=== PATIENT | female | born 1960 | race African-American/Black ===

== ENCOUNTER 2019-03-12 13:23 | Emergency (ER) | payer OTHER ==
[~2019-03-12] VITALS: Ht 162.6 cm; Wt 68.0 kg
[2019-03-12 13:40] VITALS: BP 158/76
[2019-03-12] MEDS ORDERED: LOSARTAN POTASS50 MG ORAL (13:40)
[2019-03-12] MEDS ORDERED: GABAPENTIN600 MG ORAL ×3 (13:40)
[2019-03-12] MEDS ORDERED: KLONOPIN0.5 MG ORAL (13:40)
--- NOTE | 2019-03-12 13:40 | NUR ---
ED Nurse Note: pt walked in due to pain and abrasion on the lower chin, pt stated she slipped on a rug in [employer] and fell on her chin and left knee and left elbow. pt noted with some bruises. denies dizziness prioopr to fall. pt stated she ahs previous hx of stroke 10 years ago. pt has right body deficiency.. pt able to answer all questions. will continue to monitor.
[2019-03-12] MEDS ORDERED: Acetaminophen 500mg (ES) tab PO ONE (14:00)
--- NOTE | 2019-03-12 14:00 | NUR ---
ED Nurse Note: pt was seen by ted.
--- NOTE | 2019-03-12 14:20 | NUR ---
ED Nurse Note: pt went to ct with tech
--- NOTE | 2019-03-12 14:32 | NUR ---
ED Nurse Note: pt went back from ct with tech
--- NOTE | 2019-03-12 14:33 | NUR ---
ED Nurse Note: pt medical and pt able to tolerate well
--- NOTE | 2019-03-12 14:53 | Diagnostic Imaging Report ---
Indications: Intense headache and nausea after trip and fall today, 7 out of 10, nonradiating Technique: Spiral acquisitions obtained through the brain. Angled axial and coronal 5 x 5 mm slices were reconstructed. Total dose length product 2044.94 mGycm. CTDI vol(s) 70.38,28.19,11.18 mGy. Dose reduction achieved using automated exposure control Comparison: None. Findings: No acute intracranial hemorrhage or edema, mass effect, nor midline shift. Normal jack-white differentiation. Old lacunar infarcts are seen in the basal ganglia bilaterally. There is periventricular deep white matter low-attenuation, consistent with chronic microvascular ischemic change. Normal size ventricles and extra-axial CSF spaces. The calvarium is intact. The sinuses are clear. The mastoids are clear. Impression: Chronic and age-related changes, including multiple old lacunar infarcts Negative for acute intracranial bleed or mass effect This agrees with the preliminary interpretation provided overnight by [facility]. The CT scanner at [facility] is accredited by the [employer] and the scans are performed using protocols designed to limit radiation exposure to as low as reasonably achievable to attain images of sufficient resolution adequate for diagnostic evaluation.
--- NOTE | 2019-03-12 14:55 | Diagnostic Imaging Report ---
Indications: Facial pain, status post trip and fall with facial trauma Technique: Spiral images obtained through the facial bones. No IV contrast utilized. Multiplanar reconstructions were generated.Total dose length product 2044 mGycm. CTDIvol(s) 70, 28, 11 mGy. Dose reduction achieved using automated exposure control Comparison: none Findings: No acute fractures. No worrisome sinus opacification. The optic globes are intact. The retroseptal orbits are intact. There is evidence of multiple prior dental extractions. Impression: Essentially unremarkable exam This agrees with the preliminary interpretation provided overnight by [facility]. The CT scanner at [facility] is accredited by the [employer] and the scans are performed using protocols designed to limit radiation exposure to as low as reasonably achievable to attain images of sufficient resolution adequate for diagnostic evaluation.
--- NOTE | 2019-03-12 15:11 | Diagnostic Imaging Report ---
Indication: Neck pain status post trip and fall trauma Technique: Spiral acquisitions obtained through the cervical spine. No IV contrast utilized. Multiplanar reconstructions were generated. Total dose length product 2044.94 mGycm. CTDIvol(s) 70.38,28.19,11.18 mGy. Dose reduction achieved using automated exposure control. Comparison: none Findings: There is slight reversal of the normal cervical lordosis, otherwise normal bony alignment. No prevertebral soft tissue swelling. No acute fractures. No dislocations. At C3-4, there is facet arthrosis on the left At C4-5, there is mild degenerative disc narrowing. There is mild broad-based central posterior disc protrusion which results in borderline narrowing of the spinal canal. There is mild narrowing of the left neural foramen. There is facet arthrosis on the left. At C5-6, there is moderate degenerative disc narrowing. There is mild left and moderate right neural foraminal stenosis. There is broad-based posterior disc protrusion which results in borderline narrowing of the spinal canal. At C6-7, there is moderate degenerative disc narrowing. There is mild bilateral neural foraminal stenosis. No significant disc bulge or protrusion or spinal stenosis. At C7-T1, no significant disc bulge or protrusion, spinal stenosis, or neural foraminal narrowing. The upper aerodigestive tract is unremarkable. The included extra spinal soft tissues are unremarkable. Impression: No acute bony trauma Degenerative changes, as detailed on a level by level basis above. This agrees with the preliminary interpretation provided overnight by [facility]. The CT scanner at [facility] is accredited by the [employer] and the scans are performed using protocols designed to limit radiation exposure to as low as reasonably achievable to attain images of sufficient resolution adequate for diagnostic evaluation.
[2019-03-12] MEDS ORDERED: ROBAXIN-750750 MG PO (15:48)
[2019-03-12] MEDS ORDERED: LIDODERM700 M1 TOPIC (15:48)
[2019-03-12 15:55] VITALS: BP 158/76
--- NOTE | 2019-03-12 15:55 | NUR ---
ER DISCHARGE NOTE: Patient is cleared to be discharged per ERMD, pt is aox4, on room air, with stable vital signs. pt was given dc and prescription instructions, pt was able to verbalize understanding, pt id band removed without complications. pt is able to ambulate with steady gait. pt took all belongings.
--- NOTE | 2019-03-12 18:45 | Emergency Room Report ---
History of Present Illness General Chief Complaint: Multiple Trauma/Fall Source: Patient Present Illness HPI 58-year-old female resents ED for evaluation. Patient had a mechanical trip and fall today at pharmacy. Denies LOC. States she is having intense headache , nausea, neck pain and facial pain. Pain is throbbing, 7 out of 10, nonradiating. Notes nausea, denies vomiting. Notes dizziness. Has history of CVA in the past. No other aggravating relieving factors. Denies any other associated symptoms Allergies: Coded Allergies: No Known Allergies (Unverified , 03/12/19) Patient History Past Medical History: none Past Surgical History: none Pertinent Family History: none Social History: Denies: smoking, alcohol use, drug use Last Menstrual Period: no period Now: No Immunizations: UTD Reviewed Nursing Documentation: PMH: Agreed; PSxH: Agreed Nursing Documentation-PMH Past Medical History: No Stated History Hx Cardiac Problems: No - stroke in 2008 Review of Systems All Other Systems: negative except mentioned in HPI Physical Exam Vital Signs Date Time Temp Pulse Resp B/P (MAP) Pulse Ox O2 Delivery O2 Flow Rate FiO2 03/12/19 13:29 98.4 73 17 158/76 (103) 94 Room Air Sp02 EP Interpretation: reviewed, normal General Appearance: no apparent distress, alert, GCS 15, non-toxic Head: normocephalic, atraumatic Eyes: bilateral eye normal inspection, bilateral eye PERRL ENT: hearing grossly normal, normal pharynx, no angioedema, normal voice Neck: full range of motion, supple, supple/symm/no masses, tender lateral, tender midline Respiratory: chest non-tender, lungs clear, normal breath sounds, speaking full sentences Cardiovascular #1: regular rate, rhythm, no edema Cardiovascular #2: 2+ carotid (R), 2+ carotid (L), 2+ radial (R), 2+ radial (L) , 2+ dorsalis pedis (R), 2+ dorsalis pedis (L) Gastrointestinal: normal bowel sounds, non tender, soft, non-distended, no guarding, no rebound Rectal: deferred Genitourinary: normal inspection, no CVA tenderness Musculoskeletal: back normal, gait/station normal, normal range of motion, non- tender Neurologic: alert, oriented x3, responsive, motor strength/tone normal, sensory intact, speech normal Psychiatric: judgement/insight normal, memory normal, mood/affect normal, no suicidal/homicidal ideation Reflexes: 3+ bicep (R), 3+ bicep (L), 3+ tricep (R), 3+ tricep (L), 3+ knee (R) , 3+ knee (L) Lymphatic: no adenopathy Medical Decision Making Diagnostic Impression: Primary Impression: Cervical strain Qualified Codes: S16.1XXA - Strain of muscle, fascia and tendon at neck level , initial encounter Additional Impression: Multiple injuries due to trauma ER Course Hospital Course 58-year-old F presents to ED complaining of head and neck pain pain s/p trip and fall Differential diagnoses include: Fracture, dislocation, sprain, contusion Clinical course Patient placed on stretcher. After initial history and physical, I ordered pain medications and CT Head/Cspine/Facial Bones CT showed no acute process. Discussed findings with patient. On reassessment pain improved. Reassurance given. Safe for discharge for close outpatient follow-up. States she has a PMD Diagnosis - cervical strain, multiple injuries due to trauma Stable and discharged to home with prescription for tylenol, robaxin, lidoderm. weight bear as tolerated. Followup with PMD. Return to ED if symptoms recur or worsen CT/MRI/US Diagnostic Results CT/MRI/US Diagnostic Results #1: Imaging Test Ordered: CT Head Impression no acute process CT/MRI/US Diagnostic Results #2: Imaging Test Ordered: CT C spine Impression no acute process. some DJD noted CT/MRI/US Diagnostic Results #3: Imaging Test Ordered: CT Facial Bones Impression no acute process Last Vital Signs Date Time Temp Pulse Resp B/P (MAP) Pulse Ox O2 Delivery O2 Flow Rate FiO2 03/12/19 15:55 98.4 73 17 158/76 94 Room Air Status: improved Disposition: HOME, SELF-CARE Condition: Stable Scripts Lidocaine Patch* (Lidoderm Patch*) 1 Each Adh..patch 1 PATCH TOPIC DAILY, #7 PATCH 0 Refills Patch(es) may remain in place for up to 12 hours in any 24-hour period. Prov: Dean Jovel MD 03/12/19 Methocarbamol* (ROBAXIN-750*) 750 Mg Tablet 750 MG PO TID, #21 TAB 0 Refills Prov: Dean Jovel MD 03/12/19 Referrals: NOT CHOSEN IPA/,REFERRING (PCP) Patient Instructions: Cervical Strain and Sprain With Rehab-[facility] Dean Jovel MD Mar 12, 2019 18:45
== END 2019-03-12 15:55 | disposition home or self-care (01) ==
LOC: EMR 15:33
DX: S16.1XXA Strain of muscle, fascia and tendon at neck level, initial encounter (principal); W01.0XXA Fall on same level from slipping, tripping and stumbling without subsequent striking against object, initial encounter; Y92.9 Unspecified place or not applicable; Z86.73 Personal history of transient ischemic attack (TIA), and cerebral infarction without residual deficits; R11.0 Nausea; R51 Headache
CPT/HCPCS: 70450; 70486; 72125; 99284